=== PATIENT | female | born 1990 | race Caucasian/White ===

== ENCOUNTER 2016-07-21 18:07 | Emergency (ER) | payer MEDICAID ==
[2016-07-21 18:07] VITALS: BMI 26.2
[2016-07-21 18:26] VITALS: RESP 18
[2016-07-21] MEDS ORDERED: Sodium Chloride 0.9% 1,000 ML IV ONE (20:02)
[2016-07-21] MEDS ORDERED: Sodium Chloride 0.9% 500 ML IV ONE ×2 (20:02→20:20)
--- NOTE | 2016-07-21 20:04 | C.PDOC ---
History Of Present Illness Patient is a 26 year old female who presents to the ER with a complaint of fever and sore throat, associated with vomiting since this morning. Patient denies any shortness of breath or cough. Chief Complaint (Nursing): GI Problem History/Exam Limitations: no limitations Onset/Duration Of Symptoms: Hrs (Since AM) Current Symptoms Are (Timing): Still Present Location Of Pain: Throat (Sore) Associated Symptoms: Fever, Sore Throat, Vomiting Past Medical History Reviewed: Historical Data, Nursing Documentation, Vital Signs Vital Signs: Last Vital Signs Temp 100.0 F H 07/21/16 22:04 Pulse 119 H 07/21/16 22:04 Resp 18 07/21/16 22:04 BP 101/64 07/21/16 22:04 Pulse Ox 99 07/21/16 22:04 - Medical History PMH: No Chronic Diseases Surgical History: Endoscopy - [facility] Procedures ESOPHAGOGASTRODUODENOSCOPY [EGD] W/CLOSED BIOPSY (10/24/13) INJECT/INFUSE NEC (05/21/14) Family History: States: Unknown Family Hx - Social History Hx Tobacco Use: No Hx Alcohol Use: No Hx Substance Use: No - Immunization History Hx Tetanus Toxoid Vaccination: No Hx Influenza Vaccination: No Hx Pneumococcal Vaccination: No Review Of Systems Constitutional: Positive for: Fever ENT: Positive for: Throat Pain (Sore) Respiratory: Negative for: Cough, Shortness of Breath Gastrointestinal: Positive for: Vomiting Physical Exam - Physical Exam Appears: Well, Non-toxic Skin: Normal Color, Warm, Dry Head: Atraumatic, Normacephalic Oral Mucosa: Moist Throat: No Exudate, Other (Congestion) Neck: Normal, Supple Lymphatic: Other (Swollen left cervical lymph node) Chest: Symmetrical, No Tenderness Cardiovascular: Rhythm Regular, No Murmur Respiratory: Normal Breath Sounds, No Rales, No Rhonchi, No Wheezing Gastrointestinal/Abdominal: Soft, No Tenderness Neurological/Psych: Oriented x3, Normal Speech, Normal Cognition ED Course And Treatment - Laboratory Results Result Diagrams: 07/21/16 20:18 07/21/16 20:18 O2 Sat by Pulse Oximetry: 100 (Room air) Pulse Ox Interpretation: Normal Progress Note: Blood work, urinalysis, and throat culture ordered. Tylenol PO, zofran IVP, and IV fluids administered. Disposition Counseled Patient/Family Regarding: Diagnosis - Disposition Referrals: [facility] [Outside] Disposition: HOME/ ROUTINE Disposition Time: 23:25 Condition: STABLE Additional Instructions: warm saline gargle 4 x a day Prescriptions: Acetaminophen [Tylenol 325mg tab] 650 mg PO Q4 #20 tab Amoxicillin [Amoxil 500 mg Cap] 500 mg PO TID #20 cap Instructions: Pharyngitis (ED), (ED) - POA Present On Arrival: None - Clinical Impression Clinical Impression: , Pharyngitis - Scribe Statement The provider has reviewed the documentation as recorded by the Scribluisa Olivo All medical record entries made by the Vinayibluisa were at my direction and personally dictated by me. I have reviewed the chart and agree that the record accurately reflects my personal performance of the history, physical exam, medical decision making, and the department course for this patient. I have also personally directed, reviewed, and agree with the discharge instructions and disposition.
[2016-07-21] MEDS ORDERED: Sodium Chloride 0.9% 1,000 ML ONE (20:20)
[2016-07-21 20:25] LABS: BASO % 0.2 % (0.0-2.0); EOS % 0.3 % (0.0-4.0); HEMATOCRIT 34.2 % (34.0-47.0); LYMPH # 1.2 K/uL (1.0-4.3); LYMPH % 7.5 % (20.0-40.0); MEAN CELL VOLUME 81.1 fL (81.0-99.0); MEAN CORPUSCULAR HEMOGLOBIN 26.9 pg (27.0-31.0); MEAN CORPUSCULAR HGB CONC 33.2 g/dL (33.0-37.0); MEAN PLATELET VOLUME 7.1 fL (7.2-11.7); MONO % 6.2 % (0.0-10.0); PLATELET COUNT 404 K/uL (130-400); RED CELL DISTRIBUTION WIDTH 13.5 % (11.5-14.5)
[2016-07-21 20:28] LABS: URINE BILIRUBIN NEGATIVE (NEGATIVE); URINE BLOOD 1+ (NEGATIVE); URINE COLOR Straw (YELLOW); URINE GLUCOSE (UA) NORMAL (Normal); URINE KETONE NEGATIVE (NEGATIVE); URINE LEUKOCYTE ESTERASE NEG Leu/uL (Negative); URINE PROTEIN NEGATIVE (NEGATIVE); URINE UROBILINOGEN NORMAL mg/dL (0.2-1.0); WBC URINE < 1 /hpf (0-5); WHITE BLOOD COUNT 16.2 K/uL (4.8-10.8)
[2016-07-21 20:29] LABS: CHLORIDE 99 mmol/L (98-107); SODIUM 134 mmol/L (132-148)
[2016-07-21 20:30] LABS: POTASSIUM 3.9 mmol/L (3.6-5.2)
[2016-07-21 20:32] LABS: ALB/GLOB RATIO 1.2 (1.0-2.1); ALKALINE PHOSPHATASE 53 U/L (38-126); ALT/SGPT 30 U/L (9-52); AST/SGOT 27 U/L (14-36); BILIRUBIN,TOTAL 0.5 mg/dL (0.2-1.3); BLOOD UREA NITROGEN 4 mg/dL (7-17); CARBON DIOXIDE 21 mmol/L (22-30); GFR AFRICAN-AMERICAN > 60; GLUCOSE,RANDOM 83 mg/dL (65-105); TOTAL PROTEIN 7.4 g/dL (6.3-8.3)
[2016-07-21 23:08] LABS: LARGE PLATELETS PRESENT; NEUTROPHIL 78 % (50-75); TOTAL CELLS COUNTED 100
[2016-07-21 23:56] VITALS: BP 119/73; PULSE 118; TEMP 98.6; O2SAT 99
== END 2016-07-21 23:56 | disposition home or self-care (01) ==
LOC: C.ER 18:07
DX: O98.811 Other maternal infectious and parasitic diseases complicating pregnancy, first trimester (principal); J02.0 Streptococcal pharyngitis; B95.0 Streptococcus, group A, as the cause of diseases classified elsewhere; Z3A.12 12 weeks gestation of pregnancy
CPT/HCPCS: 80053; 81001; 85025; 86308; 87070; 96374; 99285; J2405; J7040